=== PATIENT | female | born 1995 | race Caucasian/White ===

== ENCOUNTER 2016-12-31 16:45 | Inpatient (IN) | payer OTHER ==
[~2016-12-31] VITALS: Ht 154.9 cm; Wt 76.4 kg
[2016-12-31] VITALS (25 sets, daily range): BP systolic 99–147; BP diastolic 56–90
[2016-12-31] MEDS ORDERED: EXPECTA PRENAT1 EACH PO (17:16)
[2016-12-31 19:48] LABS: EOSINOPHIL (%) 0 % (0-5); HEMATOCRIT 30.3 % (36.0-46.0); IMMATURE GRANULOCYTE (%) 0.3 % (0.0-0.7); INSTRUMENT ABS NEUTROPHIL CT 8.5 K/uL; LYMPHOCYTE COUNT 2.2 K/uL (1.0-2.8); MCHC 33.3 G/DL (30.0-36.0); MCV 92.9 FL (83-99); MEAN PLAT.VOLUME 10.6 uM^3 (9.5-12.4); MONOCYTE (%) 5.9 % (3-12); MONOCYTE COUNT 0.7 K/uL (0-0.8); NEUTROPHIL (%) 74.3 % (45-76); NEUTROPHIL COUNT 8.5 K/uL (1.8-6.4); PLATELET COUNT 228 K/uL (156-360); RBC DIS.WIDTH-CV 13.6 % (11.8-14.6); RBC DIS.WIDTH-SD 45.6 % (39-53); RED BLOOD COUNT 3.26 M/uL (3.80-5.20); WHITE BLOOD COUNT 11.5 K/uL (4.1-10.2)
[2016-12-31] MEDS ORDERED: MOTRIN800 MG PO (22:55)
[2017-01-01 00:05] VITALS: BP 120/65
[2017-01-01 00:38] VITALS: BP 123/62
[2017-01-01 01:44] VITALS: BP 124/64
[2017-01-01 07:43] VITALS: BP 130/78
[2017-01-01 14:33] VITALS: BP 123/69
[2017-01-01 23:06] VITALS: BP 119/60
[2017-01-02 07:50] VITALS: BP 111/57
== END 2017-01-02 13:30 | disposition home or self-care (01) | DRG 775 ==
LOC: LDRP-OP 16:45 → 2WEST 16:46 → LDRP-OP 02-04 10:30
PROVIDERS: Nurse Practitioner
PROC: 00HU33Z Insertion of Infusion Device into Spinal Canal, Percutaneous Approach (ICD-10-PCS; principal; 2016-12-31)
PROC: 10E0XZZ Delivery of Products of Conception, External Approach (ICD-10-PCS; principal; 2016-12-31)
PROC: 10907ZC Drainage of Amniotic Fluid, Therapeutic from Products of Conception, Via Natural or Artificial Opening (ICD-10-PCS; principal; 2016-12-31)
PROC: 3E0R3CZ (ICD-10-PCS; principal; 2016-12-31)
DX: O80 Encounter for full-term uncomplicated delivery (principal); Z3A.39 39 weeks gestation of pregnancy; Z37.0 Single live birth
CPT/HCPCS: 85025; C1755; J2795; J3010; J7120